=== PATIENT | male | born 1980 | race African-American/Black ===

== ENCOUNTER 2017-03-19 14:29 | Emergency (ER) | payer SELFPAY ==
[~2017-03-19] VITALS: Ht 182.9 cm; Wt 63.6 kg
[~2017-03-19 14:29] MED LIST: ACYC1CAP16 PO; AMOX875 PO; HYDR-3580 PO; IBUP800T23 PO; Z.0.NO CURRENT MEDS
[2017-03-19 14:30] VITALS: BP 130/78; PULSE 74; RESP 20; TEMP 98.4; O2SAT 99
--- NOTE | 2017-03-19 14:59 | PD ---
Physical Exam Time Seen by Provider: 14:57 Narrative 36 y/o male with dental pain for several months, worse over the past week. vss Seen at triage desk. Awaiting bed placement. Data Data Last Documented VS Vital Signs Date Time Temp Pulse Resp B/P Pulse Ox O2 Delivery O2 Flow Rate FiO2 03/19/17 14:30 98.4 74 20 130/78 99 Room Air MDM Medical Record Reviewed: Yes Supervised Visit with JOSE DAVID: Ashutosh Yu March 19, 2017 14:59
== END 2017-03-19 19:05 | disposition left against medical advice (07) ==
LOC: NED 14:29
DX: K08.89 Other specified disorders of teeth and supporting structures (principal); Z53.21 Procedure and treatment not carried out due to patient leaving prior to being seen by health care provider
CPT/HCPCS: 99282